=== PATIENT | male | born 1980 | race Two or more races ===

== ENCOUNTER 2021-04-02 08:00 | Outpatient (CLI) | payer OTHER | END 2021-04-02 08:30 | disposition home or self-care (01) | LOC: PPH VACUNA 08:00 | DX: Z23 Encounter for immunization (principal) ==

== ENCOUNTER 2022-10-07 12:01 | Outpatient (CLI) | payer OTHER | END 2022-10-07 12:13 | disposition home or self-care (01) | LOC: RAD 12:01 | PROVIDERS: ATTEND General Practice | DX: M25.561 Pain in right knee (principal) ==

== ENCOUNTER 2022-11-17 10:40 | Outpatient (CLI) | payer OTHER | END 2022-11-17 10:53 | disposition home or self-care (01) | LOC: RAD 10:40 | PROVIDERS: ATTEND Orthopaedic Surgery | DX: R07.9 Chest pain, unspecified (principal) ==